=== PATIENT | male | born 1940 | race Caucasian/White ===

== ENCOUNTER → 2016-10-05 | Outpatient (REF) | payer MEDICARE, OTHER ==
[2016-10-05 14:13] LABS: ALBUMIN 3.8 GM/DL (3.2-5.2); ALBUMIN/GLOBULIN RATIO 1.12 (1.00-1.93); ALKALINE PHOSPHATASE 73 U/L (45-117); ALT/SGPT 21 U/L (12-78); ANION GAP 6 MEQ/L (8-16); AST/SGOT 11 U/L (15-37); BILIRUBIN,TOTAL 0.9 MG/DL (0.2-1.0); BLOOD UREA NITROGEN 9 MG/DL (7-18); CALCIUM LEVEL 9.1 MG/DL (8.8-10.2); CARBON DIOXIDE LEVEL 29 MEQ/L (21-32); CHLORIDE LEVEL 101 MEQ/L (98-107); CHOLESTEROL LEVEL 146 MG/DL (<200); CREATININE FOR GFR 0.84 MG/DL (0.70-1.30); GLOMERULAR FILTRATION RATE > 60.0 (>42); GLUCOSE, FASTING 91 MG/DL (83-110); POTASSIUM SERUM 4.6 MEQ/L (3.5-5.1); SODIUM LEVEL 136 MEQ/L (136-145); TOTAL PROTEIN 7.2 GM/DL (6.4-8.2); TRIGLYCERIDES LEVEL 88 MG/DL (<150)
== END ==
LOC: M LABDRAW1 13:14
PROVIDERS: ATTEND Emergency Medicine
DX: Z00.00 Encounter for general adult medical examination without abnormal findings (principal); E78.2 Mixed hyperlipidemia

== ENCOUNTER → 2017-10-21 | Outpatient (REF) | payer MEDICARE, OTHER ==
[2017-10-21 11:06] LABS: ALBUMIN 4.2 GM/DL (3.2-5.2); ALBUMIN/GLOBULIN RATIO 1.24 (1.00-1.93); ALKALINE PHOSPHATASE 79 U/L (45-117); ALT/SGPT 25 U/L (12-78); ANION GAP 8 MEQ/L (8-16); AST/SGOT 13 U/L (7-37); BILIRUBIN,TOTAL 0.6 MG/DL (0.2-1.0); BLOOD UREA NITROGEN 14 MG/DL (7-18); CALCIUM LEVEL 8.9 MG/DL (8.8-10.2); CARBON DIOXIDE LEVEL 29 MEQ/L (21-32); CHLORIDE LEVEL 99 MEQ/L (98-107); CHOLESTEROL LEVEL 136 MG/DL (<200); CHOLESTEROL RISK RATIO 2.833 (<5); CREATININE FOR GFR 0.93 MG/DL (0.70-1.30); GLOMERULAR FILTRATION RATE > 60.0 (>42); GLUCOSE, FASTING 98 MG/DL (70-100); HDL CHOLESTEROL 48 MG/DL (>40); NON-HDL-C 88 MG/DL; POTASSIUM SERUM 4.7 MEQ/L (3.5-5.1); SODIUM LEVEL 136 MEQ/L (136-145); TOTAL PROTEIN 7.6 GM/DL (6.4-8.2); TRIGLYCERIDES LEVEL 85 MG/DL (<150)
== END ==
LOC: M LABDRAW1 09:00
DX: Z00.00 Encounter for general adult medical examination without abnormal findings (principal); E78.2 Mixed hyperlipidemia
CPT/HCPCS: 80053

== ENCOUNTER → 2018-10-09 | Outpatient (REF) | payer MEDICARE, OTHER ==
[2018-10-09 14:19] LABS: ALBUMIN 4.2 GM/DL (3.2-5.2); ALT/SGPT 23 U/L (12-78); BILIRUBIN,TOTAL 0.8 MG/DL (0.2-1.0); BLOOD UREA NITROGEN 12 MG/DL (7-18); CARBON DIOXIDE LEVEL 28 MEQ/L (21-32); CHLORIDE LEVEL 95 MEQ/L (98-107); CHOLESTEROL LEVEL 134 MG/DL (<200); CHOLESTEROL RISK RATIO 2.791 (<5); CREATININE FOR GFR 0.88 MG/DL (0.70-1.30); GLOMERULAR FILTRATION RATE > 60.0 (>42); GLUCOSE, FASTING 91 MG/DL (70-100); HDL CHOLESTEROL 48 MG/DL (>40); LDL CHOLESTEROL 67 MG/DL (<100); NON-HDL-C 86 MG/DL; POTASSIUM SERUM 4.9 MEQ/L (3.5-5.1); SODIUM LEVEL 129 MEQ/L (136-145); TOTAL PROTEIN 7.7 GM/DL (6.4-8.2); TRIGLYCERIDES LEVEL 93 MG/DL (<150)
== END ==
LOC: M LABDRAW1 11:35
PROVIDERS: ATTEND Physician Assistant
DX: E78.2 Mixed hyperlipidemia (principal)

== ENCOUNTER → 2018-11-27 | Outpatient (REF) | payer MEDICARE, OTHER ==
[~2018-11-27] MED LIST: AMIT25TA PO; CBD OIL PO; CO Q1CAP2 PO; FISH1000 PO; FLUTISP NARES; KRIL300C2 PO; LUTE20CA7 PO; MELO7.5T35 PO; MULTCAP PO; OMEP-221 PO; SIMV10TA2 PO; areds PO
[2018-11-27 14:13] LABS: BLOOD UREA NITROGEN 15 MG/DL (7-18); CALCIUM LEVEL 8.8 MG/DL (8.8-10.2); CARBON DIOXIDE LEVEL 26 MEQ/L (21-32); CHLORIDE LEVEL 94 MEQ/L (98-107); CREATININE FOR GFR 0.88 MG/DL (0.70-1.30); GLOMERULAR FILTRATION RATE > 60.0 (>42); GLUCOSE, FASTING 72 MG/DL (70-100); POTASSIUM SERUM 4.7 MEQ/L (3.5-5.1); SODIUM LEVEL 129 MEQ/L (136-145)
== END ==
LOC: M LABDRAW1 13:13
PROVIDERS: ATTEND Physician Assistant
DX: R03.0 Elevated blood-pressure reading, without diagnosis of hypertension (principal)

== ENCOUNTER 2018-12-15 09:01 | Day surgery (SDC) | payer MEDICARE, OTHER ==
[~2018-12-15] VITALS: Ht 180.3 cm; Wt 84.4 kg
[2018-12-15] MEDS ORDERED: LIDOCAINE 2% INJ 100 MG/5 ML SDV (FOR ANES.) As Ordered ONE (09:20)
[2018-12-15] MEDS ORDERED: PROPOFOL 200 MG/20 ML VIAL As Ordered ONE (09:20)
--- NOTE | 2018-12-15 10:58 | ROOR ---
Patient Name: Ab Rodriguez Procedure Date: 12/15/2018 10:33 AM Date of : 1940 Age: 78 Room: [facility] Gender: Male Note Status: Finalized Procedure: Colonoscopy Indications: High risk colon cancer surveillance: Personal history of colonic polyps Providers: Wilder RUSHING MD Referring MD: Lilian Davila MD Requesting Provider: Medicines: Monitored Anesthesia Care Complications: No immediate complications. Procedure: Pre-Anesthesia Assessment: - The heart rate, respiratory rate, oxygen saturations, blood pressure, adequacy of pulmonary ventilation, and response to care were monitored throughout the procedure. The Colonoscope was introduced through the anus and advanced to the terminal ileum, with identification of the appendiceal orifice and IC valve. The colonoscopy was performed without difficulty. The patient tolerated the procedure well. The quality of the bowel preparation was fair. Findings: The perianal and digital rectal examinations were normal. A 5 mm polyp was found in the sigmoid colon. The polyp was sessile. The polyp was removed with a cold snare. Resection and retrieval were complete. Multiple small and large-mouthed diverticula were found in the sigmoid colon. There was evidence of diverticular spasm. Internal hemorrhoids were found during retroflexion. The hemorrhoids were medium-sized. The exam was otherwise without abnormality on direct and retroflexion views. Impression: - Preparation of the colon was fair. - One 5 mm polyp in the sigmoid colon, removed with a cold snare. Resected and retrieved. - Moderate diverticulosis in the sigmoid colon. There was evidence of diverticular spasm. - Moderate Internal hemorrhoids. - The examination was otherwise normal on direct and retroflexion views. Recommendation: - Repeat colonoscopy in 5 years for surveillance. Wilder Rushing MD Wilder RUSHING MD 12/15/2018 10:57:42 AM Electronically signed by Wilder RUSHING MD Number of Addenda: 0 Note Initiated On: 12/15/2018 10:33 AM Estimated Blood Loss: Estimated blood loss: none.
[2018-12-15 11:20] VITALS: BP 135/85
== END 2018-12-15 11:26 | disposition home or self-care (01) ==
LOC: M OPP 09:01
PROVIDERS: ATTEND Internal Medicine Gastroenterology
DX: Z12.11 Encounter for screening for malignant neoplasm of colon (principal); Z86.010 Personal history of colon polyps; K64.8 Other hemorrhoids; K57.30 Diverticulosis of large intestine without perforation or abscess without bleeding; D12.5 Benign neoplasm of sigmoid colon; Z79.899 Other long term (current) drug therapy; Z91.018 Allergy to other foods

== ENCOUNTER → 2019-01-12 | Outpatient (REF) | payer MEDICARE, OTHER ==
[2019-01-12 14:07] LABS: BLOOD UREA NITROGEN 14 MG/DL (7-18); CALCIUM LEVEL 8.9 MG/DL (8.8-10.2); CARBON DIOXIDE LEVEL 28 MEQ/L (21-32); CHLORIDE LEVEL 95 MEQ/L (98-107); CREATININE FOR GFR 0.89 MG/DL (0.70-1.30); GLOMERULAR FILTRATION RATE > 60.0 (>42); GLUCOSE, FASTING 85 MG/DL (70-100); POTASSIUM SERUM 4.8 MEQ/L (3.5-5.1); SODIUM LEVEL 126 MEQ/L (136-145)
== END ==
LOC: M LABDRAW1 13:28
PROVIDERS: ATTEND Physician Assistant
DX: I10 Essential (primary) hypertension (principal)

== ENCOUNTER → 2019-02-06 | Outpatient (REF) | payer MEDICARE, OTHER ==
[~2019-02-06] MED LIST changes: -SIMV10TA2 PO; +SIMV10TA21 PO
[2019-02-06 14:20] LABS: BLOOD UREA NITROGEN 18 MG/DL (7-18); CALCIUM LEVEL 8.8 MG/DL (8.8-10.2); CARBON DIOXIDE LEVEL 28 MEQ/L (21-32); CHLORIDE LEVEL 97 MEQ/L (98-107); CREATININE FOR GFR 0.88 MG/DL (0.70-1.30); GLOMERULAR FILTRATION RATE > 60.0 (>42); GLUCOSE, FASTING 106 MG/DL (70-100); POTASSIUM SERUM 5.1 MEQ/L (3.5-5.1); SODIUM LEVEL 130 MEQ/L (136-145)
== END ==
LOC: M LABDRAW1 13:22
PROVIDERS: ATTEND Physician Assistant
DX: I10 Essential (primary) hypertension (principal)

== ENCOUNTER → 2019-02-26 | Outpatient (REF) | payer MEDICARE, OTHER ==
[2019-02-26 12:46] LABS: BLOOD UREA NITROGEN 25 MG/DL (7-18); CALCIUM LEVEL 8.8 MG/DL (8.8-10.2); CARBON DIOXIDE LEVEL 25 MEQ/L (21-32); CHLORIDE LEVEL 97 MEQ/L (98-107); CREATININE FOR GFR 0.97 MG/DL (0.70-1.30); GLOMERULAR FILTRATION RATE > 60.0 (>42); GLUCOSE, FASTING 80 MG/DL (70-100); POTASSIUM SERUM 4.6 MEQ/L (3.5-5.1); SODIUM LEVEL 131 MEQ/L (136-145)
== END ==
LOC: M LABDRAW1 11:24
PROVIDERS: ATTEND Physician Assistant
DX: I10 Essential (primary) hypertension (principal)

== ENCOUNTER → 2019-09-24 | Outpatient (CLI) | payer MEDICARE, OTHER ==
[2019-09-24 13:05] LABS: BASO # 0.1 10^3/uL (0.0-0.2); BASO % 0.8 % (0.0-1.0); EOS # 0.3 10^3/uL (0.0-0.5); EOS % 5.6 % (0.0-3.0); HEMATOCRIT 38.9 % (42.0-52.0); HEMOGLOBIN 13.2 g/dl (13.5-17.5); LYMPH # 2.3 10^3/uL (1.5-5.0); LYMPH % 37.5 % (24.0-44.0); MEAN CORPUSCULAR HEMOGLOBIN 31.7 pg (27.0-33.0); MEAN CORPUSCULAR HGB CONC 33.9 g/dl (32.0-36.5); MEAN CORPUSCULAR VOLUME 93.5 fl (80.0-96.0); MONO # 0.7 10^3/uL (0.0-0.8); NEUTROPHILS # 2.6 10^3/uL (1.5-8.5); NEUTROPHILS % 43.8 % (36.0-66.0); PLATELET COUNT, AUTOMATED 202 10^3/uL (150-450); RED BLOOD COUNT 4.16 10^6/uL (4.30-6.10)
[2019-09-24 13:14] LABS: ALBUMIN 4.1 GM/DL (3.2-5.2); ALT/SGPT 22 U/L (12-78); BILIRUBIN,TOTAL 0.6 MG/DL (0.2-1.0); BLOOD UREA NITROGEN 17 MG/DL (7-18); CALCIUM LEVEL 8.9 MG/DL (8.8-10.2); CARBON DIOXIDE LEVEL 27 MEQ/L (21-32); CHLORIDE LEVEL 97 MEQ/L (98-107); CHOLESTEROL LEVEL 147 MG/DL (<200); CHOLESTEROL RISK RATIO 3.127 (<5); CREATININE FOR GFR 0.97 MG/DL (0.70-1.30); GLOMERULAR FILTRATION RATE > 60.0 (>42); GLUCOSE, FASTING 101 MG/DL (70-100); HDL CHOLESTEROL 47 MG/DL (>40); LDL CHOLESTEROL 80 MG/DL (<100); NON-HDL-C 100 MG/DL; POTASSIUM SERUM 4.8 MEQ/L (3.5-5.1); SODIUM LEVEL 131 MEQ/L (136-145); TOTAL PROTEIN 7.6 GM/DL (6.4-8.2); TRIGLYCERIDES LEVEL 102 MG/DL (<150)
== END ==
LOC: M PLALAB 08:57
PROVIDERS: ATTEND Physician Assistant
DX: E78.2 Mixed hyperlipidemia (principal); I10 Essential (primary) hypertension

== ENCOUNTER → 2020-09-30 | Outpatient (CLI) | payer MEDICARE, OTHER ==
[~2020-09-30] MED LIST changes: -AMIT25TA PO; +AMIT25TA17 PO
[2020-09-30 14:19] LABS: ALBUMIN 3.9 GM/DL (3.2-5.2); ALT/SGPT 24 U/L (12-78); BILIRUBIN,TOTAL 0.3 MG/DL (0.2-1.0); BLOOD UREA NITROGEN 16 MG/DL (7-18); CALCIUM LEVEL 8.7 MG/DL (8.8-10.2); CARBON DIOXIDE LEVEL 27 MEQ/L (21-32); CHLORIDE LEVEL 97 MEQ/L (98-107); CHOLESTEROL LEVEL 138 MG/DL (<200); CHOLESTEROL RISK RATIO 3.209 (<5); GLOMERULAR FILTRATION RATE > 60.0 (>42); GLUCOSE, FASTING 86 MG/DL (70-100); HDL CHOLESTEROL 43 MG/DL (>40); LDL CHOLESTEROL 59 MG/DL (<100); NON-HDL-C 95 MG/DL; POTASSIUM SERUM 4.9 MEQ/L (3.5-5.1); SODIUM LEVEL 130 MEQ/L (136-145); TOTAL PROTEIN 7.3 GM/DL (6.4-8.2); TRIGLYCERIDES LEVEL 181 MG/DL (<150)
== END ==
LOC: M PLALAB 10:48
PROVIDERS: ATTEND Physician Assistant Medical
DX: E78.2 Mixed hyperlipidemia (principal)

== ENCOUNTER → 2021-10-05 | Outpatient (CLI) | payer MEDICARE, OTHER ==
[~2021-10-05] MED LIST changes: -OMEP-221 PO; +OMEP40CA5 PO
[2021-10-05 12:36] LABS: ALBUMIN 3.8 GM/DL (3.2-5.2); ALT/SGPT 22 U/L (12-78); BILIRUBIN,TOTAL 0.6 MG/DL (0.2-1.0); BLOOD UREA NITROGEN 17 MG/DL (7-18); CALCIUM LEVEL 8.8 MG/DL (8.8-10.2); CARBON DIOXIDE LEVEL 26 MEQ/L (21-32); CHLORIDE LEVEL 94 MEQ/L (98-107); CHOLESTEROL LEVEL 124 MG/DL (<200); CREATININE FOR GFR 0.92 MG/DL (0.70-1.30); GLOMERULAR FILTRATION RATE > 60.0 (>42); GLUCOSE, FASTING 86 MG/DL (70-100); HDL CHOLESTEROL 49 MG/DL (>40); LDL CHOLESTEROL 63 MG/DL (<100); NON-HDL-C 75 MG/DL; POTASSIUM SERUM 4.9 MEQ/L (3.5-5.1); SODIUM LEVEL 126 MEQ/L (136-145); TOTAL PROTEIN 7.6 GM/DL (6.4-8.2); TRIGLYCERIDES LEVEL 62 MG/DL (<150)
== END ==
LOC: M PLALAB 08:50
PROVIDERS: ATTEND Nurse Practitioner Family
DX: I10 Essential (primary) hypertension (principal); E78.2 Mixed hyperlipidemia

== ENCOUNTER → 2021-11-11 | Outpatient (CLI) | payer MEDICARE | LOC: M PLAIMG 08:25 | PROVIDERS: ATTEND Nurse Practitioner Family | DX: M79.645 Pain in left finger(s) (principal); M19.042 Primary osteoarthritis, left hand ==

== ENCOUNTER → 2023-03-28 | Outpatient (CLI) | payer MEDICARE ==
[~2023-03-28] MED LIST changes: -AMIT25TA17 PO; +AMIT25TA19 PO
[2023-03-28 11:52] LABS: BASO % 0.7 % (0.0-1.0); EOS # 0.3 10^3/uL (0.0-0.5); EOS % 4.7 % (0.0-3.0); HEMATOCRIT 33.9 % (42.0-52.0); HEMOGLOBIN 11.5 g/dl (13.5-17.5); LYMPH # 1.4 10^3/uL (1.5-5.0); LYMPH % 25.8 % (24.0-44.0); MEAN CORPUSCULAR HEMOGLOBIN 32.2 pg (27.0-33.0); MEAN CORPUSCULAR HGB CONC 33.9 g/dl (32.0-36.5); MONO # 0.8 10^3/uL (0.0-0.8); NEUTROPHILS # 2.9 10^3/uL (1.5-8.5); NEUTROPHILS % 54.1 % (36.0-66.0); PLATELET COUNT, AUTOMATED 205 10^3/uL (150-450); RED BLOOD COUNT 3.57 10^6/uL (4.30-6.10); WHITE BLOOD COUNT 5.4 10^3/uL (4.0-10.0)
[2023-03-28 12:27] LABS: BLOOD UREA NITROGEN 16 MG/DL (9-23); CALCIUM LEVEL 8.9 MG/DL (8.3-10.6); CARBON DIOXIDE LEVEL 27 MMOL/L (20-31); CHLORIDE LEVEL 98 MMOL/L (98-107); CREATININE FOR GFR 0.85 MG/DL (0.70-1.30); GLOMERULAR FILTRATION RATE > 60.0 (>35); GLUCOSE, FASTING 108 MG/DL (74-106); POTASSIUM SERUM 5.3 MMOL/L (3.5-5.1); SODIUM LEVEL 130 MMOL/L (136-145)
== END ==
LOC: M PLALAB 07:28
PROVIDERS: ATTEND Nurse Practitioner Family
DX: I10 Essential (primary) hypertension (principal)

== ENCOUNTER → 2023-05-09 | Outpatient (CLI) | payer MEDICARE ==
[2023-05-09 13:50] LABS: APPEARANCE, URINE CLEAR (CLEAR); BACTERIA, URINE AUTO NEGATIVE (NEGATIVE); BILIRUBIN, URINE AUTO NEGATIVE (NEGATIVE); BLOOD, URINE BLOOD NEGATIVE (NEGATIVE); COLOR, URINE YELLOW (YELLOW); GLUCOSE, URINE (UA) AUTO NEGATIVE (NEGATIVE); KETONE, URINE AUTO NEGATIVE (NEGATIVE); LEUKOCYTE ESTERASE, URINE AUTO NEGATIVE (NEGATIVE); NITRITE, URINE AUTO NEGATIVE (NEGATIVE); PROTEIN, URINE AUTO NEGATIVE (NEGATIVE); RBC, URINE AUTO 1 /HPF (0-3); SPECIFIC GRAVITY URINE AUTO 1.011 (1.002-1.035); SQUAMOUS EPITHELIAL CELL UR AU 0 /HPF (0-6); UROBILINOGEN, URINE AUTO 0.2 mg/dL (0.0-2.0); WBC, URINE AUTO 0 /HPF (0-3)
[2023-05-09 13:59] LABS: BASO # 0.1 10^3/uL (0.0-0.2); BASO % 0.9 % (0.0-1.0); EOS # 0.3 10^3/uL (0.0-0.5); EOS % 3.8 % (0.0-3.0); HEMATOCRIT 34.9 % (42.0-52.0); HEMOGLOBIN 11.7 g/dl (13.5-17.5); LYMPH # 1.5 10^3/uL (1.5-5.0); LYMPH % 21.8 % (24.0-44.0); MEAN CORPUSCULAR HEMOGLOBIN 30.4 pg (27.0-33.0); MEAN CORPUSCULAR HGB CONC 33.5 g/dl (32.0-36.5); MEAN CORPUSCULAR VOLUME 90.6 fl (80.0-96.0); MONO % 13.9 % (2.0-8.0); NEUTROPHILS % 58.9 % (36.0-66.0); PLATELET COUNT, AUTOMATED 259 10^3/uL (150-450); RED BLOOD COUNT 3.85 10^6/uL (4.30-6.10); WHITE BLOOD COUNT 6.8 10^3/uL (4.0-10.0)
[2023-05-09 14:02] LABS: ALBUMIN 4.1 G/DL (3.2-5.2); ALKALINE PHOSPHATASE 62 U/L (46-116); ALT/SGPT 19 U/L (7.0-40); AST/SGOT 12 U/L (<34); BILIRUBIN,TOTAL 0.6 MG/DL (0.3-1.2); BLOOD UREA NITROGEN 20 MG/DL (9-23); CALCIUM LEVEL 8.8 MG/DL (8.3-10.6); CARBON DIOXIDE LEVEL 28 MMOL/L (20-31); CHLORIDE LEVEL 95 MMOL/L (98-107); GLOMERULAR FILTRATION RATE > 60.0 (>35); GLUCOSE, FASTING 92 MG/DL (74-106); IRON (FE) 31 UG/DL (65-175); PERCENT SATURATION 8.1 % (19.7-50.0); POTASSIUM SERUM 4.8 MMOL/L (3.5-5.1); SODIUM LEVEL 128 MMOL/L (136-145); TOTAL IRON BINDING CAPACITY 382 UG/DL (250-425); TOTAL PROTEIN 7.3 G/DL (5.7-8.2)
[2023-05-09 14:06] LABS: THYROID STIMULATING HORMONE 1.058 uIU/ML (0.55-4.78)
[2023-05-09 14:07] LABS: FREE T4 1.39 NG/DL (0.89-1.76)
== END ==
LOC: M PLALAB 10:08
PROVIDERS: ATTEND Nurse Practitioner Family
DX: D64.9 Anemia, unspecified (principal)

== ENCOUNTER → 2023-06-20 | Outpatient (CLI) | payer MEDICARE ==
[2023-06-20 12:59] LABS: BASO % 0.6 % (0.0-1.0); EOS # 0.1 10^3/uL (0.0-0.5); HEMATOCRIT 38.2 % (42.0-52.0); HEMOGLOBIN 12.7 g/dl (13.5-17.5); LYMPH # 1.5 10^3/uL (1.5-5.0); LYMPH % 20.9 % (24.0-44.0); MEAN CORPUSCULAR HEMOGLOBIN 30.2 pg (27.0-33.0); MEAN CORPUSCULAR HGB CONC 33.2 g/dl (32.0-36.5); MEAN CORPUSCULAR VOLUME 90.7 fl (80.0-96.0); MONO # 0.8 10^3/uL (0.0-0.8); MONO % 11.2 % (2.0-8.0); NEUTROPHILS # 4.7 10^3/uL (1.5-8.5); NEUTROPHILS % 64.9 % (36.0-66.0); PLATELET COUNT, AUTOMATED 214 10^3/uL (150-450); RED BLOOD COUNT 4.21 10^6/uL (4.30-6.10); WHITE BLOOD COUNT 7.2 10^3/uL (4.0-10.0)
[2023-06-20 13:02] LABS: PERCENT SATURATION 24.5 % (19.7-50.0)
[2023-06-20 13:07] LABS: FERRITIN 8.9 NG/ML (10.5-307.3)
== END ==
LOC: M PLALAB 09:46
PROVIDERS: ATTEND Nurse Practitioner Family
DX: D64.9 Anemia, unspecified (principal)

== ENCOUNTER → 2023-11-02 | Outpatient (CLI) | payer MEDICARE ==
[2023-11-02 12:13] LABS: BASO # 0.1 10^3/uL (0.0-0.2); BASO % 0.9 % (0.0-1.0); EOS # 0.2 10^3/uL (0.0-0.5); EOS % 2.9 % (0.0-3.0); HEMATOCRIT 39.7 % (42.0-52.0); HEMOGLOBIN 13.6 g/dl (13.5-17.5); LYMPH # 1.8 10^3/uL (1.5-5.0); LYMPH % 29.8 % (24.0-44.0); MEAN CORPUSCULAR HEMOGLOBIN 32.4 pg (27.0-33.0); MEAN CORPUSCULAR HGB CONC 34.3 g/dl (32.0-36.5); MEAN CORPUSCULAR VOLUME 94.5 fl (80.0-96.0); MONO # 0.6 10^3/uL (0.0-0.8); MONO % 10.7 % (2.0-8.0); NEUTROPHILS # 3.2 10^3/uL (1.5-8.5); PLATELET COUNT, AUTOMATED 202 10^3/uL (150-450); WHITE BLOOD COUNT 5.9 10^3/uL (4.0-10.0)
[2023-11-02 13:01] LABS: ALBUMIN 4.2 G/DL (3.2-5.2); ALKALINE PHOSPHATASE 64 U/L (46-116); ALT/SGPT 20 U/L (7.0-40); AST/SGOT 12 U/L (<34); BILIRUBIN,TOTAL 0.9 MG/DL (0.3-1.2); BLOOD UREA NITROGEN 19 MG/DL (9-23); CALCIUM LEVEL 9.4 MG/DL (8.3-10.6); CARBON DIOXIDE LEVEL 25 MMOL/L (20-31); CHLORIDE LEVEL 96 MMOL/L (98-107); CREATININE FOR GFR 0.83 MG/DL (0.70-1.30); FERRITIN 29.4 NG/ML (10.5-307.3); GLOMERULAR FILTRATION RATE > 60.0 (>35); GLUCOSE, FASTING 100 MG/DL (74-106); POTASSIUM SERUM 5.1 MMOL/L (3.5-5.1); SODIUM LEVEL 128 MMOL/L (136-145); TOTAL IRON BINDING CAPACITY 335 UG/DL (250-425); TOTAL PROTEIN 7.5 G/DL (5.7-8.2)
[2023-11-02 13:03] LABS: IRON (FE) 150 UG/DL (65-175)
[2023-11-02 13:04] LABS: PERCENT SATURATION 44.8 % (19.7-50.0)
== END ==
LOC: M PLALAB 08:59
PROVIDERS: ATTEND Nurse Practitioner Family
DX: Z11.59 Encounter for screening for other viral diseases (principal); I10 Essential (primary) hypertension; D64.9 Anemia, unspecified; Z72.89 Other problems related to lifestyle
CPT/HCPCS: 36415; 80053; 82728; 83550; 85025; G0472

== ENCOUNTER 2024-03-17 06:13 | Emergency (ER) | payer MEDICARE ==
[~2024-03-17 06:13] MED LIST changes: +ACET650T61 PO; +AMLO10TA PO; +CELE1CAP99 PO; +FISH100015 PO; +METO1TAB32 PO; +PRESCAP PO; +SODI1TAB6 PO; +THERTAB52 PO
[2024-03-17 08:24] LABS: BASO % 0.6 % (0.0-1.0); EOS # 0.1 10^3/uL (0.0-0.5); HEMATOCRIT 37.2 % (42.0-52.0); HEMOGLOBIN 13.2 g/dl (13.5-17.5); LYMPH # 0.9 10^3/uL (1.5-5.0); LYMPH % 14.7 % (24.0-44.0); MEAN CORPUSCULAR HEMOGLOBIN 32.3 pg (27.0-33.0); MEAN CORPUSCULAR HGB CONC 35.5 g/dl (32.0-36.5); MONO # 0.7 10^3/uL (0.0-0.8); MONO % 11.9 % (2.0-8.0); NEUTROPHILS # 4.4 10^3/uL (1.5-8.5); NEUTROPHILS % 70.7 % (36.0-66.0); PLATELET COUNT, AUTOMATED 220 10^3/uL (150-450); RED BLOOD COUNT 4.09 10^6/uL (4.30-6.10); WHITE BLOOD COUNT 6.2 10^3/uL (4.0-10.0)
[2024-03-17 08:52] LABS: ETHYL ALCOHOL (ETHANOL) < 0.003 % (0.000-0.010)
[2024-03-17 08:53] LABS: CPK CREATINE PHOSPHOKINASE 493 U/L (46-171)
[2024-03-17 08:54] LABS: ALBUMIN 4.1 G/DL (3.2-5.2); ALKALINE PHOSPHATASE 68 U/L (40-129); ALT/SGPT 37 U/L (7.0-40); AST/SGOT 48 U/L (<34); BILIRUBIN,DIRECT 0.2 MG/DL (<0.4); BILIRUBIN,TOTAL 0.8 MG/DL (0.3-1.2); BLOOD UREA NITROGEN 13 MG/DL (9-23); CALCIUM LEVEL 9.3 MG/DL (8.3-10.6); CARBON DIOXIDE LEVEL 27 MMOL/L (20-31); CHLORIDE LEVEL 96 MMOL/L (98-107); CREATININE FOR GFR 0.77 MG/DL (0.70-1.30); GLOMERULAR FILTRATION RATE > 60.0 (>35); GLUCOSE, FASTING 109 MG/DL (74-106); POTASSIUM SERUM 3.9 MMOL/L (3.5-5.1); SALICYLATE LEVEL < 3.0 MG/DL (<30); SODIUM LEVEL 131 MMOL/L (136-145); TOTAL PROTEIN 7.4 G/DL (5.7-8.2)
[2024-03-17 08:56] LABS: THYROID STIMULATING HORMONE 0.531 uIU/ML (0.55-4.78)
[2024-03-17 09:53] LABS: AMPHETAMINES LEVEL URINE NEGATIVE (NEGATIVE); BENZODIAZEPINES URINE NEGATIVE (NEGATIVE)
[2024-03-17 09:54] LABS: BARBITURATES URINE NEGATIVE (NEGATIVE); CANNABINOIDS URINE POSITIVE (NEGATIVE); COCAINE METABOLITE URINE NEGATIVE (NEGATIVE); METHADONE URINE NEGATIVE (NEGATIVE); OPIATES URINE NEGATIVE (NEGATIVE); PHENCYCLIDINE URINE NEGATIVE (NEGATIVE)
[2024-03-17] MEDS ORDERED: UNIS25TA3 PO (10:11)
[2024-03-17 10:16] VITALS: BP 163/93; TEMP 98.1; O2SAT 99
== END 2024-03-17 10:23 | disposition home or self-care (01) ==
LOC: M ED 06:13
DX: G47.9 Sleep disorder, unspecified (principal); F12.10 Cannabis abuse, uncomplicated; Z91.018 Allergy to other foods; Z79.1 Long term (current) use of non-steroidal anti-inflammatories (NSAID); Z79.899 Other long term (current) drug therapy

== ENCOUNTER → 2024-03-20 | Outpatient (CLI) | payer MEDICARE ==
[~2024-03-20] MED LIST changes: +UNIS25TA3 PO
[2024-03-20 12:48] LABS: BASO # 0.1 10^3/uL (0.0-0.2); BASO % 0.7 % (0.0-1.0); EOS # 0.4 10^3/uL (0.0-0.5); EOS % 5.6 % (0.0-3.0); HEMOGLOBIN 13.7 g/dl (13.5-17.5); LYMPH # 1.3 10^3/uL (1.5-5.0); LYMPH % 19.1 % (24.0-44.0); MEAN CORPUSCULAR HEMOGLOBIN 32.7 pg (27.0-33.0); MEAN CORPUSCULAR HGB CONC 35.1 g/dl (32.0-36.5); MEAN CORPUSCULAR VOLUME 93.1 fl (80.0-96.0); MONO # 0.9 10^3/uL (0.0-0.8); MONO % 13.6 % (2.0-8.0); NEUTROPHILS # 4.1 10^3/uL (1.5-8.5); NEUTROPHILS % 59.7 % (36.0-66.0); PLATELET COUNT, AUTOMATED 260 10^3/uL (150-450); RED BLOOD COUNT 4.19 10^6/uL (4.30-6.10); WHITE BLOOD COUNT 6.9 10^3/uL (4.0-10.0)
[2024-03-20 12:51] LABS: OSMOLALITY URINE 402 MOSM/KG (50-1400)
[2024-03-20 13:11] LABS: SODIUM,RANDOM URINE 70 MMOL/L
[2024-03-20 13:13] LABS: APPEARANCE, URINE HAZY (CLEAR); BACTERIA, URINE AUTO NEGATIVE (NEGATIVE); BILIRUBIN, URINE AUTO NEGATIVE (NEGATIVE); BLOOD, URINE BLOOD 1+ (NEGATIVE); COLOR, URINE YELLOW (YELLOW); GLUCOSE, URINE (UA) AUTO NEGATIVE (NEGATIVE); KETONE, URINE AUTO NEGATIVE (NEGATIVE); LEUKOCYTE ESTERASE, URINE AUTO NEGATIVE (NEGATIVE); MUCUS, URINE SMALL (NEGATIVE); NITRITE, URINE AUTO NEGATIVE (NEGATIVE); PROTEIN, URINE AUTO NEGATIVE (NEGATIVE); RBC, URINE AUTO 4 /HPF (0-3); SPECIFIC GRAVITY URINE AUTO 1.013 (1.002-1.035); SQUAMOUS EPITHELIAL CELL UR AU 0 /HPF (0-6); UROBILINOGEN, URINE AUTO 0.2 mg/dL (0.0-2.0); WBC, URINE AUTO 1 /HPF (0-3)
[2024-03-20 13:25] LABS: ALBUMIN 3.9 G/DL (3.2-5.2); ALKALINE PHOSPHATASE 68 U/L (40-129); ALT/SGPT 43 U/L (7.0-40); AST/SGOT 50 U/L (<34); BILIRUBIN,TOTAL 0.8 MG/DL (0.3-1.2); BLOOD UREA NITROGEN 17 MG/DL (9-23); CALCIUM LEVEL 10.8 MG/DL (8.3-10.6); CARBON DIOXIDE LEVEL 27 MMOL/L (20-31); CHLORIDE LEVEL 93 MMOL/L (98-107); CREATININE FOR GFR 0.78 MG/DL (0.70-1.30); FOLATE > 24.0 NG/ML (>5.4); GLOMERULAR FILTRATION RATE > 60.0 (>35); GLUCOSE, FASTING 92 MG/DL (74-106); POTASSIUM SERUM 4.1 MMOL/L (3.5-5.1); SODIUM LEVEL 129 MMOL/L (136-145); TOTAL 25(OH) VITAMIN D 48.8 NG/ML (20.0-100.0); TOTAL PROTEIN 7.4 G/DL (5.7-8.2); VITAMIN B12 LEVEL 902 PG/ML (211-911)
[2024-03-20 13:33] LABS: OSMOLALITY SERUM 272 MOSM/KG (280-301)
== END ==
LOC: M PLAIMG 09:37
PROVIDERS: ATTEND Nurse Practitioner Family
DX: R06.02 Shortness of breath (principal); R41.82 Altered mental status, unspecified; E87.1 Hypo-osmolality and hyponatremia; R53.83 Other fatigue; Z79.899 Other long term (current) drug therapy

== ENCOUNTER 2024-03-25 15:17 | Emergency (ER) | payer MEDICARE ==
[~2024-03-25] VITALS: Ht 180.3 cm; Wt 73.9 kg
[2024-03-25 15:56] LABS: BASO # 0.1 10^3/uL (0.0-0.2); BASO % 0.7 % (0.0-1.0); EOS # 0.2 10^3/uL (0.0-0.5); EOS % 2.9 % (0.0-3.0); HEMATOCRIT 34.4 % (42.0-52.0); HEMOGLOBIN 11.9 g/dl (13.5-17.5); KETONE, URINE AUTO RFX NEGATIVE (NEGATIVE); LEUKOCYTE ESTERASE UR AUTO RFX NEGATIVE (NEGATIVE); LYMPH # 0.9 10^3/uL (1.5-5.0); LYMPH % 12.1 % (24.0-44.0); MEAN CORPUSCULAR HEMOGLOBIN 32.5 pg (27.0-33.0); MEAN CORPUSCULAR HGB CONC 34.6 g/dl (32.0-36.5); MONO # 1.1 10^3/uL (0.0-0.8); MONO % 15.1 % (2.0-8.0); MUCUS, URINE RFX SMALL (NEGATIVE); NEUTROPHILS # 4.9 10^3/uL (1.5-8.5); NEUTROPHILS % 68.6 % (36.0-66.0); NITRITE, URINE AUTO RFX NEGATIVE (NEGATIVE); PLATELET COUNT, AUTOMATED 273 10^3/uL (150-450); RBC, URINE AUTO RFX 0 /HPF (0-3); RED BLOOD COUNT 3.66 10^6/uL (4.30-6.10); SQUAM EPITHELIAL CELL UR AURFX 0 /HPF (0-6); WBC, URINE AUTO RFX 1 /HPF (0-3); WHITE BLOOD COUNT 7.1 10^3/uL (4.0-10.0)
[2024-03-25 16:22] LABS: AMPHETAMINES LEVEL URINE NEGATIVE (NEGATIVE); BARBITURATES URINE NEGATIVE (NEGATIVE); BENZODIAZEPINES URINE NEGATIVE (NEGATIVE); COCAINE METABOLITE URINE NEGATIVE (NEGATIVE); METHADONE URINE NEGATIVE (NEGATIVE); OPIATES URINE NEGATIVE (NEGATIVE); PHENCYCLIDINE URINE NEGATIVE (NEGATIVE)
[2024-03-25 16:25] LABS: ALBUMIN 3.4 G/DL (3.2-5.2); ALKALINE PHOSPHATASE 62 U/L (40-129); ALT/SGPT 33 U/L (7.0-40); AST/SGOT 38 U/L (<34); BILIRUBIN,DIRECT 0.2 MG/DL (<0.4); BILIRUBIN,TOTAL 0.6 MG/DL (0.3-1.2); BLOOD UREA NITROGEN 16 MG/DL (9-23); CANNABINOIDS URINE POSITIVE (NEGATIVE); CARBON DIOXIDE LEVEL 34 MMOL/L (20-31); CHLORIDE LEVEL 96 MMOL/L (98-107); CREATININE FOR GFR 0.88 MG/DL (0.70-1.30); FREE T4 1.39 NG/DL (0.89-1.76); GLOMERULAR FILTRATION RATE > 60.0 (>35); GLUCOSE, FASTING 86 MG/DL (74-106); POTASSIUM SERUM 3.1 MMOL/L (3.5-5.1); SODIUM LEVEL 136 MMOL/L (136-145); THYROID STIMULATING HORMONE 0.657 uIU/ML (0.55-4.78); TOTAL PROTEIN 6.8 G/DL (5.7-8.2)
[2024-03-25 16:57] LABS: OSMOLALITY SERUM 284 MOSM/KG (280-301)
[2024-03-25] MEDS: POTASSIUM CHLORIDE 10MEQ SR TABLET PO ONE (17:39)
[2024-03-25 19:45] VITALS: BP 138/76; TEMP 97.6; O2SAT 96
== END 2024-03-25 20:00 | disposition home or self-care (01) ==
LOC: M ED 15:17 → EDBD 15:17 → M ED 20:00
DX: R41.0 Disorientation, unspecified (principal); K21.9 Gastro-esophageal reflux disease without esophagitis; F12.10 Cannabis abuse, uncomplicated; M54.50 Low back pain, unspecified; Z91.018 Allergy to other foods; Z79.02 Long term (current) use of antithrombotics/antiplatelets; Z79.899 Other long term (current) drug therapy

== ENCOUNTER → 2024-04-03 | Outpatient (CLI) | payer MEDICARE ==
[2024-04-03 15:32] LABS: BASO # 0.1 10^3/uL (0.0-0.2); BASO % 0.8 % (0.0-1.0); EOS # 0.2 10^3/uL (0.0-0.5); HEMATOCRIT 38.5 % (42.0-52.0); HEMOGLOBIN 12.7 g/dl (13.5-17.5); LYMPH # 1.6 10^3/uL (1.5-5.0); LYMPH % 20.6 % (24.0-44.0); MEAN CORPUSCULAR HEMOGLOBIN 32.2 pg (27.0-33.0); MEAN CORPUSCULAR VOLUME 97.7 fl (80.0-96.0); MONO # 0.8 10^3/uL (0.0-0.8); MONO % 10.4 % (2.0-8.0); NEUTROPHILS # 5.2 10^3/uL (1.5-8.5); NEUTROPHILS % 65.2 % (36.0-66.0); PLATELET COUNT, AUTOMATED 309 10^3/uL (150-450); RED BLOOD COUNT 3.94 10^6/uL (4.30-6.10)
[2024-04-03 16:00] LABS: ALBUMIN 3.8 G/DL (3.2-5.2); ALKALINE PHOSPHATASE 77 U/L (40-129); ALT/SGPT 27 U/L (7.0-40); AST/SGOT 22 U/L (<34); BILIRUBIN,TOTAL 0.4 MG/DL (0.3-1.2); BLOOD UREA NITROGEN 19 MG/DL (9-23); CALCIUM LEVEL 9.1 MG/DL (8.3-10.6); CARBON DIOXIDE LEVEL 27 MMOL/L (20-31); CHLORIDE LEVEL 94 MMOL/L (98-107); CREATININE FOR GFR 0.71 MG/DL (0.70-1.30); FREE T4 1.38 NG/DL (0.89-1.76); GLOMERULAR FILTRATION RATE > 60.0 (>35); GLUCOSE, FASTING 96 MG/DL (74-106); SODIUM LEVEL 134 MMOL/L (136-145); THYROID STIMULATING HORMONE 0.996 uIU/ML (0.55-4.78); TOTAL PROTEIN 7.3 G/DL (5.7-8.2)
[2024-04-05 09:48] LABS: LEAD BLOOD ADULT < 1.0 mcg/dL (<3.5)
[2024-04-06 02:47] LABS: COPPER PLASMA 81 mcg/dL (70-175)
[2024-04-06 14:32] LABS: MERCURY LEVEL < 4 mcg/L (<=10)
[2024-04-06 16:18] LABS: VITAMIN E(ALPHA TOCOPHEROL) 20.9 mg/L (5.7-19.9); VITAMIN E(GAMMA TOCOPHEROL) < 1.0 mg/L (<=4.3)
[2024-04-09 16:02] LABS: VITAMIN B1 LEVEL WHOLE BLOOD 139 nmol/L (78-185)
[2024-04-10 17:37] LABS: VITAMIN B6,PYRIDOXAL PHOSPHATE 37.6 ng/mL (2.1-21.7)
== END ==
LOC: M PLALAB 09:32
PROVIDERS: ATTEND Psychiatry & Neurology Neurology
DX: E07.9 Disorder of thyroid, unspecified (principal); R41.82 Altered mental status, unspecified; E51.9 Thiamine deficiency, unspecified; E83.01 Wilson's disease; T56.1X4A Toxic effect of mercury and its compounds, undetermined, initial encounter; T56.0X4A Toxic effect of lead and its compounds, undetermined, initial encounter

== ENCOUNTER → 2024-06-04 | Outpatient (CLI) | payer MEDICARE ==
[2024-06-04 11:10] LABS: BASO % 0.6 % (0.0-1.0); EOS # 0.5 10^3/uL (0.0-0.5); HEMATOCRIT 33.9 % (42.0-52.0); HEMOGLOBIN 10.9 g/dl (13.5-17.5); LYMPH # 1.7 10^3/uL (1.5-5.0); LYMPH % 25.2 % (24.0-44.0); MEAN CORPUSCULAR HEMOGLOBIN 29.1 pg (27.0-33.0); MEAN CORPUSCULAR HGB CONC 32.2 g/dl (32.0-36.5); MEAN CORPUSCULAR VOLUME 90.4 fl (80.0-96.0); MONO # 1.1 10^3/uL (0.0-0.8); MONO % 16.5 % (2.0-8.0); NEUTROPHILS # 3.2 10^3/uL (1.5-8.5); NEUTROPHILS % 48.9 % (36.0-66.0); PLATELET COUNT, AUTOMATED 264 10^3/uL (150-450); RED BLOOD COUNT 3.75 10^6/uL (4.30-6.10); WHITE BLOOD COUNT 6.5 10^3/uL (4.0-10.0)
[2024-06-04 11:18] LABS: ERYTHROCYTE SEDIMENTATION RATE 14 mm/hr (0-20)
[2024-06-04 11:41] LABS: URIC ACID 5.3 MG/DL (3.7-9.2)
[2024-06-04 11:43] LABS: ALBUMIN 3.6 G/DL (3.2-5.2); ALKALINE PHOSPHATASE 76 U/L (40-129); ALT/SGPT 27 U/L (7.0-40); AST/SGOT 17 U/L (<34); BILIRUBIN,TOTAL 0.4 MG/DL (0.3-1.2); BLOOD UREA NITROGEN 18 MG/DL (9-23); C REACTIVE PROTEIN QUANTITATIV < 0.50 MG/DL (<1.0); CALCIUM LEVEL 8.8 MG/DL (8.3-10.6); CARBON DIOXIDE LEVEL 27 MMOL/L (20-31); CHLORIDE LEVEL 101 MMOL/L (98-107); GLOMERULAR FILTRATION RATE > 60.0 (>35); GLUCOSE, FASTING 92 MG/DL (74-106); POTASSIUM SERUM 4.5 MMOL/L (3.5-5.1); RHEUMATOID FACTOR QUANT < 3.5 IU/ML (<14); SODIUM LEVEL 134 MMOL/L (136-145); TOTAL PROTEIN 6.8 G/DL (5.7-8.2)
[2024-06-04 11:46] LABS: FREE T4 1.07 NG/DL (0.89-1.76)
[2024-06-07 19:32] LABS: LYME TOTAL ANTIBODY CIA <= 0.90 Index (<=0.90)
== END ==
LOC: M PLALAB 09:38
PROVIDERS: ATTEND Nurse Practitioner Family
DX: M12.9 Arthropathy, unspecified (principal); Z79.899 Other long term (current) drug therapy